=== PATIENT | female | born 1950 | race Caucasian/White ===

== ENCOUNTER 2017-09-12 16:40 | Emergency (ER) | payer OTHER, SELFPAY ==
--- NOTE | 2017-09-12 16:42 | ED.UPPEXIN ---
HPI - Extremity Injury (Upper) <MANFRED Recio - Last Filed: 09/12/17 22:12> General Chief Complaint: Extremity Injury, Upper Stated Complaint: RIGHT ARM INJURY Time Seen by Provider: 09/12/17 16:42 History of Present Illness HPI narrative: 66-year-old female here for complaint of pain into her right wrist and hand. Patient states that she stumbled backwards put her hand out to brace her fall causing pain to the area. She denies any head injuries. She denies any other injuries. She does reports some swelling to the right wrist. Increased pain with motion of the right wrist and hand. No other concerns or complaints. MD complaint: injury to: right, wrist and hand Related Data Home Medications Medication Instructions Recorded Confirmed Lactobacillus acidophilus 1 cap PO DAILY 09/12/17 09/12/17 [Acidophilus] Stool Softener 1 cap PO DIRECTED 09/12/17 09/12/17 acetaminophen [Tylenol] 1 - 2 tab PO PRN PRN 09/12/17 09/12/17 apixaban [Eliquis] 1 tab PO BID 09/12/17 09/12/17 diltiazem HCl [Cartia XT] 1 cap PO QAM 09/12/17 09/12/17 gabapentin 600 mg PO BEDTIME 09/12/17 09/12/17 irbesartan 1 tab PO QPM 09/12/17 09/12/17 iron 1 tab PO DAILY 09/12/17 09/12/17 levothyroxine 1 tab PO DAILY 09/12/17 09/12/17 sotalol 40 mg PO BID 09/12/17 09/12/17 Allergies Allergy/AdvReac Type Severity Reaction Status Date / Time No Known Drug Allergies Allergy Verified 09/12/17 17:33 Review of Systems <MANFRED Recio - Last Filed: 09/12/17 22:12> Constitutional Denies chills, Denies fever(s), Denies lethargy and Denies weakness Eyes Denies change in vision, Denies eye discharge, Denies irritation and Denies loss of vision ENT Ears, Nose, Mouth, and Throat: Denies change in voice, Denies neck pain and Denies sore throat Cardiovascular Denies chest pain, Denies irregular heart rhythm, Denies lightheadedness, Denies palpitations, Denies dyspnea, Denies dyspnea on exertion and Denies orthopnea Respiratory Denies cough, Denies dyspnea, Denies dyspnea on exertion and Denies wheezing Gastrointestinal Gastrointestinal: Denies abdominal pain, Denies change in bowel habits, Denies diarrhea, Denies nausea and Denies vomiting Genitourinary Denies hematuria, Denies flank pain, Denies urinary incontinence and Denies urinary urgency Musculoskeletal Denies neck pain Comments: Right wrist and hand pain Integumentary/Breasts Denies pruritus, Denies erythema, Denies rash and Denies wounds Neurologic Denies confusion, Denies loss of vision and Denies weakness Psychiatric Denies anxiety, Denies confusion, Denies depression, Denies homicidal ideation and Denies suicidal ideation Endocrine Denies palpitations Hematologic/Lymphatic Denies easy bruising Allergic/Immunologic Denies wheezing Exam <MANFRED Recio - Last Filed: 09/12/17 22:12> Initial Vital Signs Initial Vital Signs: Vital Signs Temperature 98.4 F 09/12/17 17:01 Pulse Rate 72 09/12/17 17:01 Respiratory Rate 16 09/12/17 17:01 Blood Pressure 129/72 H 09/12/17 17:01 Pulse Oximetry 100 09/12/17 17:01 Const General: cooperative and well developed Nutritional Appearance: well nourished Orientation: alert, awake, oriented x3 and not confused [facility] Mouth: oral mucosae normal and moist mucous membranes Eyes Conjunctivae: conjunctivae normal Sclera: sclerae normal Pupils: PERRL EOM: EOM intact bilaterally Resp Effort & Inspection: normal respiratory effort, able to speak in complete sentences, no respiratory distress and no use of accessory muscles Auscultation: clear to auscultation bilaterally, no rales, no rhonchi and no wheezes Cardio Rate: regular rate Rhythm: regular rhythm Heart Sounds: no click, no gallops, no murmurs and no rubs Pulses: normal peripheral pulses Skin General: no rashes or lesions noted, No jaundice and No petechiae Extrem Other: Right wrist with swelling to the distal radial aspect of the right forearm. Right hand with no deformities ecchymosis or swelling. Distal sensation is intact. Distal range of motion is intact. Distal cap refill less than 2 sec. <Tom Rajput MD - Last Filed: 09/13/17 05:10> Initial Vital Signs Initial Vital Signs: Vital Signs Temperature 98.4 F 09/12/17 17:01 Pulse Rate 72 09/12/17 17:01 Respiratory Rate 16 09/12/17 17:01 Blood Pressure 129/72 H 09/12/17 17:01 Pulse Oximetry 100 09/12/17 17:01 Course <MANFRED Recio - Last Filed: 09/12/17 22:12> Orders Ordered: Discontinued Medications Acetaminophen (Tylenol) 650 mg PO NOW ONE Stop: 09/12/17 17:15 Last Admin: 09/12/17 17:35 Dose: 650 mg Vital Signs - 8 hr 09/12/17 17:01 09/12/17 19:02 Temperature 98.4 F Pulse Rate 72 53 L Respiratory Rate 16 12 Blood Pressure 129/72 H Blood Pressure [Left Arm] 164/77 H Pulse Oximetry 100 100 <Tom Rajput MD - Last Filed: 09/13/17 05:10> Orders Ordered: Discontinued Medications Acetaminophen (Tylenol) 650 mg PO NOW ONE Stop: 09/12/17 17:15 Last Admin: 09/12/17 17:35 Dose: 650 mg Vital Signs - 8 hr 09/12/17 17:01 09/12/17 19:02 Temperature 98.4 F Pulse Rate 72 53 L Respiratory Rate 16 12 Blood Pressure 129/72 H Blood Pressure [Left Arm] 164/77 H Pulse Oximetry 100 100 MDM - Extremity Injury (Upper) <MANFRED Recio - Last Filed: 09/12/17 22:12> Imaging Data wrist : Radiologist's impression: PROCEDURE: XR WRIST RT MIN 3V INDICATIONS: Ground level fall pain to right wrist and hand TECHNIQUE: 4 views of the wrist were acquired. COMPARISON: None. FINDINGS: Bones: Mildly displaced comminuted, intra-articular fracture of the distal radius noted. 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 Scaphoid view: Scaphoid is intact. Soft tissues: No suspicious soft tissue calcifications. IMPRESSION: Distal radius fracture. Dictated by: Senia Lu MD, PhD on 09/12/2017 at 17:55 hand: Radiologist's impression: Signed Patient: AAMIR BUSTILLOS MR#: [id number] : 1950 Acct:[id number] Age/Sex: 66 / F Date of Service: 09/12/17 Loc: ED Accession Number: [id number] Procedure: XR hand RT min 3V Ordering Provider: Eric Corrigan PROCEDURE: XR HAND RT MIN 3V INDICATIONS: Ground level fall pain to right wrist and hand TECHNIQUE: 3 views of the hand(s) acquired. COMPARISON: None. FINDINGS: Bones: Distal radius fracture noted. Osteoarthritic degenerative changes. Soft tissues: No suspicious soft tissue calcifications. IMPRESSION: Distal radius fracture. Dictated by: Senia Lu MD, PhD on 09/12/2017 at 17:57 Approved by: Senia Lu MD, PhD on 09/12/2017 at 17:57 [facility] Narrative Medical decision making narrative: X-ray of the right hand and wrist shows a distal radial fracture. She is placed in a sugar-tong splint for comfort and support along with sling. [id number] Tylenol as needed for any discomfort. Ice and elevation to help with swelling. Follow up with Orthopedics. Call their number at number provided this schedule appointment next week for any worsening symptoms return to the emergency room. Discharge Plan Departure Patient Disposition: Home, Self-Care Clinical Impression: Closed right radial fracture Discharge Date/Time: 09/12/17 19:14 Interventions: ED Discharge Assessment Last Done: 09/12/17 19:13 Instructions: DI for Wrist Fracture Activity Restrictions/Additional Instructions: X-ray show fracture of the distal right radius. You have been placed in a splint for comfort and support along with a sling use as directed. Use [id number] Tylenol or Motrin as needed for any discomfort. Follow up with Orthopedics. Call their number at number provided or follow up with Orthopedics in [place] next week. Ice and elevation help with swelling. For any worsening symptoms return to the emergency room. Prescriptions: No Action acetaminophen [Tylenol] 325 mg Tablet 1 - 2 tab PO PRN PRN (Reason: Pain, Mild) RF: 0 gabapentin 600 mg tablet 600 mg PO BEDTIME RF: 0 sotalol 80 mg tablet 40 mg PO BID RF: 0 diltiazem HCl [Cartia XT] 240 mg capsule,extended release 24hr 1 cap PO QAM RF: 0 levothyroxine 200 mcg tablet 1 tab PO DAILY RF: 0 irbesartan 150 mg tablet 1 tab PO QPM RF: 0 Lactobacillus acidophilus [Acidophilus] Capsule 1 cap PO DAILY RF: 0 apixaban [Eliquis] 5 mg tablet 1 tab PO BID RF: 0 Stool Softener 1 cap PO DIRECTED RF: 0 iron 1 tab PO DAILY RF: 0 Referrals: Roselia Austin MD [Physician] - <Tom Rajput MD - Last Filed: 09/13/17 05:10> Cosign ED Attending Cosignature Attestation: I was available in the ER for consultation and assistance if needed. I agree with the content of the note, and the discharge plan.
[2017-09-12 17:01] VITALS: BP 129/72; PULSE 72; RESP 16; TEMP 36.9; O2SAT 100; BMI 27.4
--- NOTE | 2017-09-12 17:14 | DI.RAD.S_ITS ---
PROCEDURE: XR WRIST RT MIN 3V INDICATIONS: Ground level fall pain to right wrist and hand TECHNIQUE: 4 views of the wrist were acquired. COMPARISON: None. FINDINGS: Bones: Mildly displaced comminuted, intra-articular fracture of the distal radius noted. 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 Scaphoid view: Scaphoid is intact. Soft tissues: No suspicious soft tissue calcifications. IMPRESSION: Distal radius fracture. Dictated by: Senia Lu MD, PhD on 09/12/2017 at 17:55 Approved by: Senia Lu MD, PhD on 09/12/2017 at 17:57
--- NOTE | 2017-09-12 17:14 | DI.RAD.S_ITS ---
PROCEDURE: XR HAND RT MIN 3V INDICATIONS: Ground level fall pain to right wrist and hand TECHNIQUE: 3 views of the hand(s) acquired. COMPARISON: None. FINDINGS: Bones: Distal radius fracture noted. Osteoarthritic degenerative changes. Soft tissues: No suspicious soft tissue calcifications. IMPRESSION: Distal radius fracture. Dictated by: Senia Lu MD, PhD on 09/12/2017 at 17:57 Approved by: Senia Lu MD, PhD on 09/12/2017 at 17:57
[2017-09-12] MEDS: ACETAMINOPHEN 325 MG TABLET 650 MG PO (17:35)
--- NOTE | 2017-09-12 18:00 | ED_ITS ---
HPI - Extremity Injury (Upper) <MANFRED Recio - Last Filed: 09/12/17 22:12> General Chief Complaint: Extremity Injury, Upper Stated Complaint: RIGHT ARM INJURY Time Seen by Provider: 09/12/17 16:42 History of Present Illness HPI narrative: 66-year-old female here for complaint of pain into her right wrist and hand. Patient states that she stumbled backwards put her hand out to brace her fall causing pain to the area. She denies any head injuries. She denies any other injuries. She does reports some swelling to the right wrist. Increased pain with motion of the right wrist and hand. No other concerns or complaints. MD complaint: injury to: right, wrist and hand Related Data Home Medications Medication Instructions Recorded Confirmed Lactobacillus acidophilus 1 cap PO DAILY 09/12/17 09/12/17 [Acidophilus] Stool Softener 1 cap PO DIRECTED 09/12/17 09/12/17 acetaminophen [Tylenol] 1 - 2 tab PO PRN PRN 09/12/17 09/12/17 apixaban [Eliquis] 1 tab PO BID 09/12/17 09/12/17 diltiazem HCl [Cartia XT] 1 cap PO QAM 09/12/17 09/12/17 gabapentin 600 mg PO BEDTIME 09/12/17 09/12/17 irbesartan 1 tab PO QPM 09/12/17 09/12/17 iron 1 tab PO DAILY 09/12/17 09/12/17 levothyroxine 1 tab PO DAILY 09/12/17 09/12/17 sotalol 40 mg PO BID 09/12/17 09/12/17 Allergies Allergy/AdvReac Type Severity Reaction Status Date / Time No Known Drug Allergies Allergy Verified 09/12/17 17:33 Review of Systems <MANFRED Recio - Last Filed: 09/12/17 22:12> Constitutional Denies chills, Denies fever(s), Denies lethargy and Denies weakness Eyes Denies change in vision, Denies eye discharge, Denies irritation and Denies loss of vision ENT Ears, Nose, Mouth, and Throat: Denies change in voice, Denies neck pain and Denies sore throat Cardiovascular Denies chest pain, Denies irregular heart rhythm, Denies lightheadedness, Denies palpitations, Denies dyspnea, Denies dyspnea on exertion and Denies orthopnea Respiratory Denies cough, Denies dyspnea, Denies dyspnea on exertion and Denies wheezing Gastrointestinal Gastrointestinal: Denies abdominal pain, Denies change in bowel habits, Denies diarrhea, Denies nausea and Denies vomiting Genitourinary Denies hematuria, Denies flank pain, Denies urinary incontinence and Denies urinary urgency Musculoskeletal Denies neck pain Comments: Right wrist and hand pain Integumentary/Breasts Denies pruritus, Denies erythema, Denies rash and Denies wounds Neurologic Denies confusion, Denies loss of vision and Denies weakness Psychiatric Denies anxiety, Denies confusion, Denies depression, Denies homicidal ideation and Denies suicidal ideation Endocrine Denies palpitations Hematologic/Lymphatic Denies easy bruising Allergic/Immunologic Denies wheezing Exam <MANFRED Recio - Last Filed: 09/12/17 22:12> Initial Vital Signs Initial Vital Signs: Vital Signs Temperature 98.4 F 09/12/17 17:01 Pulse Rate 72 09/12/17 17:01 Respiratory Rate 16 09/12/17 17:01 Blood Pressure 129/72 H 09/12/17 17:01 Pulse Oximetry 100 09/12/17 17:01 Const General: cooperative and well developed Nutritional Appearance: well nourished Orientation: alert, awake, oriented x3 and not confused [place] Mouth: oral mucosae normal and moist mucous membranes Eyes Conjunctivae: conjunctivae normal Sclera: sclerae normal Pupils: PERRL EOM: EOM intact bilaterally Resp Effort & Inspection: normal respiratory effort, able to speak in complete sentences, no respiratory distress and no use of accessory muscles Auscultation: clear to auscultation bilaterally, no rales, no rhonchi and no wheezes Cardio Rate: regular rate Rhythm: regular rhythm Heart Sounds: no click, no gallops, no murmurs and no rubs Pulses: normal peripheral pulses Skin General: no rashes or lesions noted, No jaundice and No petechiae Extrem Other: Right wrist with swelling to the distal radial aspect of the right forearm. Right hand with no deformities ecchymosis or swelling. Distal sensation is intact. Distal range of motion is intact. Distal cap refill less than 2 sec. <Tom Rajput MD - Last Filed: 09/13/17 05:10> Initial Vital Signs Initial Vital Signs: Vital Signs Temperature 98.4 F 09/12/17 17:01 Pulse Rate 72 09/12/17 17:01 Respiratory Rate 16 09/12/17 17:01 Blood Pressure 129/72 H 09/12/17 17:01 Pulse Oximetry 100 09/12/17 17:01 Course <MANFRED Recio - Last Filed: 09/12/17 22:12> Orders Ordered: Discontinued Medications Acetaminophen (Tylenol) 650 mg PO NOW ONE Stop: 09/12/17 17:15 Last Admin: 09/12/17 17:35 Dose: 650 mg Vital Signs - 8 hr 09/12/17 17:01 09/12/17 19:02 Temperature 98.4 F Pulse Rate 72 53 L Respiratory Rate 16 12 Blood Pressure 129/72 H Blood Pressure [Left Arm] 164/77 H Pulse Oximetry 100 100 <Tom Rajput MD - Last Filed: 09/13/17 05:10> Orders Ordered: Discontinued Medications Acetaminophen (Tylenol) 650 mg PO NOW ONE Stop: 09/12/17 17:15 Last Admin: 09/12/17 17:35 Dose: 650 mg Vital Signs - 8 hr 09/12/17 17:01 09/12/17 19:02 Temperature 98.4 F Pulse Rate 72 53 L Respiratory Rate 16 12 Blood Pressure 129/72 H Blood Pressure [Left Arm] 164/77 H Pulse Oximetry 100 100 MDM - Extremity Injury (Upper) <MANFRED Recio - Last Filed: 09/12/17 22:12> Imaging Data wrist : Radiologist's impression: PROCEDURE: XR WRIST RT MIN 3V INDICATIONS: Ground level fall pain to right wrist and hand TECHNIQUE: 4 views of the wrist were acquired. COMPARISON: None. FINDINGS: Bones: Mildly displaced comminuted, intra-articular fracture of the distal radius noted. 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 Scaphoid view: Scaphoid is intact. Soft tissues: No suspicious soft tissue calcifications. IMPRESSION: Distal radius fracture. Dictated by: Senia Lu MD, PhD on 09/12/2017 at 17:55 hand: Radiologist's impression: Signed Patient: AAMIR BUSTILLOS MR#: [id number] : 1950 Acct:[id number] Age/Sex: 66 / F Date of Service: 09/12/17 Loc: ED Accession Number: [id number] Procedure: XR hand RT min 3V Ordering Provider: Eric Corrigan PROCEDURE: XR HAND RT MIN 3V INDICATIONS: Ground level fall pain to right wrist and hand TECHNIQUE: 3 views of the hand(s) acquired. COMPARISON: None. FINDINGS: Bones: Distal radius fracture noted. Osteoarthritic degenerative changes. Soft tissues: No suspicious soft tissue calcifications. IMPRESSION: Distal radius fracture. Dictated by: Senia Lu MD, PhD on 09/12/2017 at 17:57 Approved by: Senia Lu MD, PhD on 09/12/2017 at 17:57 [facility] Narrative Medical decision making narrative: X-ray of the right hand and wrist shows a distal radial fracture. She is placed in a sugar-tong splint for comfort and support along with sling. [id number] Tylenol as needed for any discomfort. Ice and elevation to help with swelling. Follow up with Orthopedics. Call their number at number provided this schedule appointment next week for any worsening symptoms return to the emergency room. Discharge Plan Departure Patient Disposition: Home, Self-Care Clinical Impression: Closed right radial fracture Discharge Date/Time: 09/12/17 19:14 Interventions: ED Discharge Assessment Last Done: 09/12/17 19:13 Instructions: DI for Wrist Fracture Activity Restrictions/Additional Instructions: X-ray show fracture of the distal right radius. You have been placed in a splint for comfort and support along with a sling use as directed. Use over-the -counter Tylenol or Motrin as needed for any discomfort. Follow up with Orthopedics. Call their number at number provided or follow up with Orthopedics in [place] next week. Ice and elevation help with swelling. For any worsening symptoms return to the emergency room. Prescriptions: No Action acetaminophen [Tylenol] 325 mg Tablet 1 - 2 tab PO PRN PRN (Reason: Pain, Mild) RF: 0 gabapentin 600 mg tablet 600 mg PO BEDTIME RF: 0 sotalol 80 mg tablet 40 mg PO BID RF: 0 diltiazem HCl [Cartia XT] 240 mg capsule,extended release 24hr 1 cap PO QAM RF: 0 levothyroxine 200 mcg tablet 1 tab PO DAILY RF: 0 irbesartan 150 mg tablet 1 tab PO QPM RF: 0 Lactobacillus acidophilus [Acidophilus] Capsule 1 cap PO DAILY RF: 0 apixaban [Eliquis] 5 mg tablet 1 tab PO BID RF: 0 Stool Softener 1 cap PO DIRECTED RF: 0 iron 1 tab PO DAILY RF: 0 Referrals: oRselia Austin MD [Physician] - <Tom Rajput MD - Last Filed: 09/13/17 05:10> Cosign ED Attending Cosignature Attestation: I was available in the ER for consultation and assistance if needed. I agree with the content of the note, and the discharge plan.
[2017-09-12 19:02] VITALS: BP 164/77; PULSE 53; RESP 12; O2SAT 100
== END 2017-09-12 19:14 | disposition home or self-care (01) ==
PROVIDERS: Emergency Provider Nurse Practitioner Family
DX: S52.91XA Unspecified fracture of right forearm, initial encounter for closed fracture (principal); W18.30XA Fall on same level, unspecified, initial encounter
CPT/HCPCS: 29105; 73110; 73130; 99283